=== PATIENT | male | born 1950 | race Caucasian/White ===

== ENCOUNTER 2016-04-15 09:44 | Emergency (ER) | payer MEDICAID ==
[2016-04-15 09:55] VITALS: TEMP 97.2
--- NOTE | 2016-04-15 11:45 | EDPHY ---
H & P Stated Complaint: rectal bleeding since this am. feeling dizzy. on coumadin.hemorroid Source: Patient Exam Limitations: No limitations - Personal History Current Tetanus/Diphtheria Vaccine: Unsure Current Tetanus Diphtheria and Acellular Pertussis (TDAP): Unsure - Medical/Surgical History Hx Asthma: No Hx Chronic Respiratory Disease: No Hx Diabetes: No Hx Cardiac Disease: Yes Hx Renal Disease: No Hx Cirrhosis: No Hx Alcoholism: No Hx HIV/AIDS: No Hx Splenectomy or Spleen Trauma: No Other PMH: AFIB, BACK PROBLEMS, hemorroid - Social History Smoking Status: Never smoked HPI/ROS: CHIEF COMPLAINT: Bleeding from hemorrhoids HISTORY OF PRESENT ILLNESS: patient has a history of previous DVT, currently on Coumadin daily. INR has been 2.5 per primary care physician. Notes some blood while wiping after bowel movement this morning. It is only on the toilet paper he did feel some mild dripping from this. No blood in the actual bowl of the toilet. No chest pain. No syncope. No weakness. No heavy bleeding. No bleeding from any other site. No constipation or diarrhea No other associated complaints or modifying factors. REVIEW OF SYSTEMS: Ten systems reviewed and are negative unless otherwise noted in the HPI EXAMINATION General Appearance: Alert, no distress Head: normocephalic, atraumatic Eyes: Pupils equal and round, no conjunctival pallor or injection ENT, Mouth: Mucous membranes moist. Uvula midline. Neck: Normal inspection, supple, non-tender Respiratory: Lungs are clear to auscultation Cardiovascular: Regular rate and rhythm . Pulses intact distally with good perfusion Gastrointestinal: obese. Abdomen is soft and nontender . Rectal exam reveals a small, bleeding hemorrhoid at 10 o'clock. No arterial flow. No abscess. Back: non-tender, no bony abnormalities Neurological: A&O, nonfocal Skin: Warm and dry, no rash Extremities: Nontender, no pedal edema Psychiatric: Mood and affect normal DIFFERENTIAL DIAGNOSES: Including but not limited to Hemorrhoids, bleeding hemorrhoids, Coumadin coagulopathy MDM: small, bleeding hemorrhoid on the 10 o'clock position. There is minimal blood flow. I have anesthetized and cauterized this with success. No bleeding after the procedure. He tolerated it well without complication. Will monitor him for rebleeding. 12:50 p.m. bleeding hemorrhoid on the patient with warfarin coagulopathy. I have anesthetized and cauterized the bleed. I have watched him for over an hour and he is no longer bleeding. He will be discharged home in stable condition with instructions for Sitz bath, ice, compression. He is to return to the ER for return of bleeding or pain. Otherwise follow up with primary care physician on Sunday for ongoing management of this. I do feel his INR may be too high for prevention, but he will discuss this with his primary care physician. PROCEDURE: Hemorrhoid cauterization Consent: Verbal Anesthesia: 1% lidocaine with epinephrine, 5 mL procedure: After good anesthesia, the area was cleaned with chlorhexidine. The bleeding hemorrhoid was cauterized as electrically with good hemostasis. This did take 2 attempts. Wound was dressed with gauze. Tolerated the procedure well without complication SUPERVISION: This patient was independently evaluated without the aide of supervising physician. (Jose Ramon Albert) Constitutional: Initial Vital Signs Temperature (C) 36.2 C 04/15/16 09:51 Heart Rate 87 04/15/16 09:51 Respiratory Rate 18 04/15/16 09:51 Blood Pressure 149/106 H 04/15/16 09:51 O2 Sat (%) 93 04/15/16 09:51 O2 Delivery Mode Room Air Allergies/Adverse Reactions: Penicillins Allergy (Unknown, Verified 04/15/16 10:02) pt does not want any Floxin abx Allergy (Uncoded 04/15/16 10:03) Home Medications: Medication Instructions Recorded Levothyroxine [Synthroid 125 mcg 125 mcg PO DAILY06 04/09/09 (*)] [place]-3 Fatty Acids [Fish Oil 1000 1,000 mg PO DAILY 07/16/15 mg (*)] Diazepam [Valium 5 MG (*)] 2.5 mg PO Q6 PRN #10 tab 07/17/15 Enoxaparin [Lovenox 120 MG (*)] 120 mg SC BID #10 syr 07/17/15 Hydrocodone/APAP 5/325 [[place] 1 - 2 tab PO Q4 PRN #30 tab 07/17/15 5/325 (*)] Warfarin Sodium 5 mg PO DAILY #30 tablet 07/17/15 Sennosides/Psyllium Husk [Senna 1 each PO DAILY #30 capsule 04/15/16 Prompt Capsule] Medical Decision Making Other Provider: The patient was evaluated and managed by the Physician Customer Data Technician/ Nurse Practitioner. My co-signature indicates that I have reviewed this chart and I agree with the findings and plan of care as documented. I am the secondary supervising physician. (Aydee Ying) Departure - Departure Disposition: Home, Routine, Self-Care Clinical Impression: Hemorrhoid, Warfarin-induced coagulopathy Condition: Good Instructions: Hemorrhoids (ED), Rectal Bleeding (ED), Warfarin (By mouth) Additional Instructions: Follow-up with primary care physician to discuss INR and Coumadin. The patient is likely a candidate to have a 1.5-2.0 INR. Defer to the primary care physician for management. Return to the ER for worsening bleeding or pain. Senna [id number] unless he develops diarrhea. Decreased activity today. Hold Coumadin today and tomorrow. Referrals: SHARMILA FINN MD [Primary Care Provider] - As per Instructions Prescriptions: Sennosides/Psyllium Husk [Senna Prompt Capsule] 1 each PO DAILY #30 capsule
[2016-04-15 12:43] VITALS: BP 114/65; PULSE 85; RESP 16; O2SAT 94
== END 2016-04-15 13:06 | disposition home or self-care (01) ==
DX: K64.9 Unspecified hemorrhoids (principal); D68.9 Coagulation defect, unspecified; Z79.01 Long term (current) use of anticoagulants

== ENCOUNTER → 2016-04-29 | Outpatient (CLI) | payer MEDICAID | LOC: FCPNEURO 21:30 | PROVIDERS: ATTEND Psychiatry & Neurology Sleep Medicine | DX: G47.33 Obstructive sleep apnea (adult) (pediatric) (principal); G47.61 Periodic limb movement disorder ==

== ENCOUNTER → 2016-05-24 | Outpatient (CLI) | payer MEDICAID | LOC: FCPNEURO 21:00 | PROVIDERS: ATTEND Psychiatry & Neurology Sleep Medicine | DX: G47.33 Obstructive sleep apnea (adult) (pediatric) (principal) ==

== ENCOUNTER 2017-03-15 11:59 | Emergency (ER) | payer MEDICAID, OTHER ==
--- NOTE | 2017-03-15 12:07 | EDPHY ---
H & P Time Seen by Provider: 03/15/17 12:03 HPI/ROS: CHIEF COMPLAINT: Cardiac alert HISTORY OF PRESENT ILLNESS: The patient is a 66-year-old man who was sent from [facility] as a cardiac alert. Of note the patient has a history of right bundle branch block and atrial fibrillation and is on Coumadin. He followed up at the clinic today to have his blood pressure checked. While he was there he told them that 2 weeks ago he had some brief left-sided chest pain that has since resolved. They noticed right branch block on his EKG and called a cardiac alert. The patient states that he has been asymptomatic for the last week or so. He denies chest pain or shortness of breath currently. He is laughing and states that he does not think he needs to be here. He has not been diaphoretic. No nausea vomiting. REVIEW OF SYSTEMS: Constitutional: denies: chills, fever, recent illness, recent injury EENTM: denies: blurred vision, double vision, nose congestion Respiratory: denies: cough, shortness of breath Cardiac: See HPI denies: chest pain, irregular heart rate, lightheadedness, palpitations Gastrointestinal/Abdominal: denies: abdominal pain, diarrhea, nausea, vomiting, blood streaked stools Genitourinary: denies: dysuria, frequency, hematuria, pain Musculoskeletal: denies: joint pain, muscle pain Skin: denies: lesions, rash, jaundice, bruising Neurological: denies: headache, numbness, paresthesia, tingling, dizziness, weakness Hematologic/Lymphatic: denies: blood clots, easy bleeding, easy bruising Immunologic/allergic: denies: HIV/AIDS, transplant EXAM: GENERAL: Well-appearing, obese and in no acute distress. HEAD: Atraumatic, normocephalic. EYES: Pupils equal round and reactive to light, extraocular movements intact, sclera anicteric, conjunctiva are normal. ENT: TMs normal, nares patent, oropharynx clear without exudates. Moist mucous membranes. NECK: Normal range of motion, supple without lymphadenopathy or JVD. LUNGS: Breath sounds clear to auscultation bilaterally and equal. No wheezes rales or rhonchi. HEART: Regular rate and rhythm without murmurs, rubs or gallops. ABDOMEN: Soft, nontender, normoactive bowel sounds. No guarding, no rebound. No masses appreciated. BACK: No CVA tenderness, no spinal tenderness, step-offs or deformities EXTREMITIES: Normal range of motion, no pitting or edema. No clubbing or cyanosis. NEUROLOGICAL: Cranial nerves II through XII grossly intact. Normal speech, normal gait. 5/5 strength, normal movement in all extremities, normal sensation PSYCH: Normal mood, normal affect. SKIN: Warm, dry, normal turgor, no visible rashes or lesions. Source: Patient, EMS Exam Limitations: No limitations - Medical/Surgical History Hx Asthma: No Hx Chronic Respiratory Disease: No Hx Diabetes: No Hx Cardiac Disease: Yes Hx Renal Disease: No Hx Cirrhosis: No Hx Alcoholism: No Hx HIV/AIDS: No Hx Splenectomy or Spleen Trauma: No Other PMH: AFIB, BACK PROBLEMS, hemorroid, obesity - Family History Significant Family History: No pertinent family hx - Social History Smoking Status: Never smoked Alcohol Use: Sober Drug Use: None Constitutional: Initial Vital Signs Temperature (C) 36.4 C 03/15/17 12:03 Heart Rate 85 03/15/17 12:03 Respiratory Rate 20 03/15/17 12:03 Blood Pressure 175/119 H 03/15/17 12:03 O2 Sat (%) 97 03/15/17 12:03 O2 Delivery Mode Room Air O2 (L/minute) 2 Allergies/Adverse Reactions: Penicillins Allergy (Unknown, Verified 03/15/17 12:03) ciprofloxacin [From Cipro] Allergy (Verified 03/15/17 12:03) Other-Enter Comments levofloxacin [From Levaquin] Allergy (Verified 03/15/17 12:03) pt does not want any Floxin abx Allergy (Uncoded 03/15/17 12:03) Home Medications: Medication Instructions Recorded Levothyroxine [Synthroid 125 mcg 125 mcg PO DAILY06 04/09/09 (*)] Warfarin Sodium 5 mg PO DAILY #30 tablet 07/17/15 Medical Decision Making - Diagnostics EKG Interpretation: An EKG obtained and was read and documented in trace view. Please see trace view for full reading and report. Atrial fibrillation, right bundle branch block, similar to outpatient Imaging Results: Imaging Impressions Chest X-Ray 03/15/17 12:04 Impression: Negative portable chest. ED Course/Re-evaluation: Dr. Darío Duggan was here on patient arrival and heard the paramedics gave report and reviewed the EKG agrees that this is not cardiac alert. I will obtain blood work and observe. 1:40 p.m. we discussed the lab work which is reassuring. The patient is eager to go home. He declines any further workup or testing at this time. He will follow up with his primary. We discussed indications for returning. Differential Diagnosis: Partial list of the Differential diagnosis considered include but were not limited to; elevated blood pressure, anxiety, and although unlikely based on the history and physical exam, I also considered acute coronary disease, PE, infection, dissection, aneurysm. I discussed these differential diagnoses and the plan with the patient as well as the usual and expected course. The patient understands that the diagnosis is provisional and that in medicine we are not always correct and that further workup is often warranted. Usual and customary warnings were given. All of the patient's questions were answered. The patient was instructed to return to the emergency department should the symptoms at all worsen or return, otherwise to followup with the physician as we discussed. - Data Points Laboratory Results: Laboratory Results 03/15/17 12:05 03/15/17 12:05 03/15/17 03/15/17 03/15/17 12:05 12:05 12:05 WBC 6.91 10^3/uL 10^3/uL (3.80-9.50) RBC 5.58 10^6/uL 10^6/uL (4.40-6.38) Hgb 18.8 g/dL H g/dL (13.7-17.5) Hct 52.0 % H % (40.0-51.0) MCV 93.2 fL fL (81.5-99.8) MCH 33.7 pg pg (27.9-34.1) MCHC 36.2 g/dL g/dL (32.4-36.7) RDW 13.7 % % (11.5-15.2) Plt Count 153 10^3/uL 10^3/uL (150-400) MPV 10.2 fL fL (8.7-11.7) Neut % (Auto) 58.1 % % (39.3-74.2) Lymph % (Auto) 26.6 % % (15.0-45.0) [place] % (Auto) 11.6 % % (4.5-13.0) Eos % (Auto) 2.2 % % (0.6-7.6) Baso % (Auto) 0.9 % % (0.3-1.7) Nucleat RBC Rel Count 0.0 % % (0.0-0.2) Absolute Neuts (auto) 4.02 10^3/uL 10^3/uL (1.70-6.50) Absolute Lymphs (auto) 1.84 10^3/uL 10^3/uL (1.00-3.00) Absolute Monos (auto) 0.80 10^3/uL 10^3/uL (0.30-0.80) Absolute Eos (auto) 0.15 10^3/uL 10^3/uL (0.03-0.40) Absolute Basos (auto) 0.06 10^3/uL 10^3/uL (0.02-0.10) Absolute Nucleated RBC 0.00 10^3/uL 10^3/uL (0-0.01) Immature Gran % 0.6 % % (0.0-1.1) Immature Gran # 0.04 10^3/uL 10^3/uL (0.00-0.10) PT 29.0 SEC H SEC (12.0-15.0) INR 2.75 H (0.83-1.16) APTT 41.1 SEC H SEC (23.0-38.0) Sodium 142 mEq/L mEq/L (134-144) Potassium 4.5 mEq/L mEq/L (3.5-5.2) Chloride 108 mEq/L mEq/L (97-110) Carbon Dioxide 23 mEq/l mEq/l (22-31) Anion Gap 11 mEq/L mEq/L (8-16) BUN 18 mg/dL mg/dL (7-23) Creatinine 0.9 mg/dL mg/dL (0.7-1.3) Estimated GFR > 60 Glucose 108 mg/dL H mg/dL (70-100) Calcium 9.7 mg/dL mg/dL (8.5-10.4) Troponin I < 0.012 ng/mL ng/mL (0.000-0.034) Departure - Departure Disposition: Home, Routine, Self-Care Clinical Impression: Hypertension Qualifiers: Hypertension type: essential hypertension Qualified Code(s): I10 - Essential ( primary) hypertension Condition: Fair Instructions: Hypertension (ED) Referrals: Patient,NotPresent [Unknown] - As per Instructions [facility],. [Clinic] - As per Instructions
[2017-03-15 12:14] LABS: PLATELET COUNT 153 10^3/uL (150-400)
--- NOTE | 2017-03-15 12:22 | CPEKG ---
Heart Rate: 106 RR Interval: 566 QRSD Interval: 142 QT Interval: 400 QTC Interval: 532 QRS [place]: 1 T Wave [place]: 20 EKG Severity - ABNORMAL ECG - EKG Impression: ATRIAL FIBRILLATION, V-RATE 82-135 EKG Impression: RIGHT BUNDLE BRANCH BLOCK EKG Impression: Unchanged from previous Electronically Signed By: Tonio Bolaños 15-Mar-2017 12:54:57
[2017-03-15 12:23] LABS: INR 2.75 (0.83-1.16)
[2017-03-15 14:03] VITALS: BP 119/75; PULSE 73; RESP 14; TEMP 97.9; O2SAT 96
== END 2017-03-15 14:02 | disposition home or self-care (01) ==
LOC: EDUNIT#
DX: I10 Essential (primary) hypertension (principal); Z79.01 Long term (current) use of anticoagulants

== ENCOUNTER 2017-08-08 05:50 | Inpatient (IN) | payer OTHER, MEDICARE ==
--- NOTE | 2017-07-30 10:12 | GHP ---
[f rep st] PREOP HISTORY AND PHYSICAL DATE OF ADMISSION: 08/08/2017 PROBLEM: Left hip arthritis. HISTORY OF PRESENT ILLNESS: The patient is a 66-year-old man admitted for a left total hip arthropla sty. His left hip has been painful for about 2 years. He had a cortisone injection 4 or 5 months ag o which was temporarily helpful. He has night pain. He does not take any medications. He has troub le putting on his shoes and socks on the left foot. Walking aggravates his pain. He is admitted for a left total hip arthroplasty. PAST MEDICAL HISTORY: In June of 2015, he underwent a spontaneous pulmonary embolism. He is curren tlcrow on Coumadin. His Coumadin is managed by the [facility]. He is also hypothyroid. He has atrial fibrillation and right bundle branch block. No history of stents, hepatitis, sleep apnea or b leeding problems. CURRENT MEDICATIONS: Coumadin. The dose varies between 2.5 and 5 mg per day. He has his INR checke d once a week. He is also on Synthroid 125 mcg per day. DRUG ALLERGIES: He states that he is allergic to penicillin. He cannot remember the reaction. It w as a long time ago. METAL ALLERGIES: None. LATEX ALLERGY: None. SOCIAL HISTORY: The patient is single. His son will be staying with him for 4 days. He does not sm lizette cigarettes or drink alcohol. He is retired. FAMILY HISTORY: Family history is positive for arthritis and heart disease. PHYSICAL EXAMINATION: VITAL SIGNS: Height 6 feet, weight 267 pounds. BMI 36.2. EYES: Conjunctiva e and sclerae are clear. Pupils are round and reactive. MOUTH: Good oral hygiene. No loose teeth. CHEST: Clear. HEART: Regular rhythm. No murmurs. EXTREMITIES: Pertinent findings are limited to his left hip. He has full hip extension and 70 degrees of flexion. As he flexes the hip, he deve lops a 30 degree external rotation contracture and has no further internal or external rotation. Abd uction 20 degrees. Most of his excess weight is in the abdominal and truncal area. IMPRESSION ON ADMISSION: 1. Left hip advanced degenerative arthritis. He is prepared for a left total hip arthroplasty. 2. History of pulmonary embolism. He is on Coumadin. 3. Treatment for hypothyroidism. PLAN: He will undergo a left total hip arthroplasty. The surgery has been described to him, panda dukes the risks, complications, expectations, and recovery time. I have discussed with him the risk of dislocation, leg length inequality, infection, and sciatic nerve injury. He understands that he pote ntially could require revision surgery in the future. He is at a higher risk for thromboembolic disease. He will be on Lovenox for bridge therapy for 4 da ys prior to surgery. All his questions have been answered, and he consents to surgery. /[id number]/MODL
[~2017-08-08 05:50] MED LIST: VANCOMYCIN PHARMACY TO DOSE MISC ONE
[2017-08-08] MEDS ORDERED: ROPIVACAINE 0.2% 80 MG, EPINEPHrine 0.2 MG, KETOROLAC TROMETHAMINE 30 MG in SYRINGE 0 ML IU ONE (06:00)
[2017-08-08] MEDS ORDERED: VANCOMYCIN 1.75 GM in D5W 500 ML IV ONE ×2 (06:00→19:00)
[2017-08-08] MEDS ORDERED: POVIDONE-IODINE 20 ML in SODIUM CL IRRIG SOLUTION 500 ML IRR ONE (06:00)
[2017-08-08] MEDS ORDERED: TRANEXAMIC ACID 2,000 MG in NS 100 ML IV ONE (06:00)
[2017-08-08] MEDS ORDERED: DEXAMETHASONE 4 MG/ML VIAL IVP ONE (06:14)
[2017-08-08] MEDS ORDERED: FAMOTIDINE 20 MG TAB PO ONE (06:14)
[2017-08-08] MEDS ORDERED: GABAPENTIN 300 MG CAP PO ONE (06:14)
[2017-08-08] MEDS ORDERED: LR 1,000 ML IV ONE (06:14)
[2017-08-08] MEDS ORDERED: ONDANSETRON 4 MG/2 ML VIAL IVP ONE (06:14)
[2017-08-08] MEDS ORDERED: ACETAMINOPHEN 325 MG TAB PO ONE (06:14)
[2017-08-08] MEDS ORDERED: LIDOCAINE 1% 2 ML INJ ID PRN (06:14)
[2017-08-08] MEDS ORDERED: ceFAZolin 1 GM/5 ML SYR ONE (06:32)
--- NOTE | 2017-08-08 07:02 | PDHPUP ---
History & Physical Update H&P update statement: This history and physical update is based on an assessment of the patient which was completed after admission or registration (within 24 hours), but prior to the surgery/procedure. H&P update: H&P reviewed & patient examined
--- NOTE | 2017-08-08 07:05 | PDANEPAE ---
ANE History of Present Illness left hip OA ANE Past Medical History - Cardiovascular History Hx Hypertension: No Hx Arrhythmias: Yes Hx Chest Pain: No Hx Coronary Artery / Peripheral Vascular Disease: No Hx CHF / Valvular Disease: No Hx Palpitations: No Cardiovascular History Comment: A fib R BBB-on Coumadin. Blood clot leg/lung - 2015. - Pulmonary History Hx COPD: No Hx Asthma/Reactive Airway Disease: No Hx Recent Upper Respiratory Infection: No Hx Oxygen in Use at Home: No Hx Sleep Apnea: Yes Sleep Apnea Screening Result - Last Documented: Positive Pulmonary History Comment: CARLOS use CPAP with nose "hose". seasonal allergies - Neurologic History Hx Cerebrovascular Accident: No Hx Seizures: No Hx Dementia: No - Endocrine History Hx Diabetes: No Hypothyroid: Yes Hyperthyroid: No Obesity: yes, severe Endocrine History Comment: hypothyroid-Castro's - Renal History Hx Renal Disorders: No Renal History Comment: kidney stones - Liver History Hx Hepatic Disorders: No - Neurological & Psychiatric Hx Hx Neurological and Psychiatric Disorders: Yes Neurological / Psychiatric History Comment: aly. bipolar 11 - Cancer History Hx Cancer: No - Congenital Disorder History Hx Congenital Disorders: No - GI History Hx Gastrointestinal Disorders: No Gastrointestinal History Comment: screening colonoscopy 10-16-16 - Other Health History Other Health History: OA L hip. Gets "cut" very easily -wound takes longer to heal. - Chronic Pain History Chronic Pain: No (lower back pain, L5/s1 fused) - Surgical History Prior Surgeries: Tonsillectomy child. right thigh, calf varicos veins ANE Review of Systems Review of systems is: negative Review of Systems: - Exercise capacity Exercise capacity: limited by disability METS (RN): 3 METS ANE Patient History - Allergies Allergies/Adverse Reactions: ciprofloxacin [From Cipro] Allergy (Unknown, Verified 07/23/17 14:58) Other-Enter Comments levofloxacin [From Levaquin] Allergy (Unknown, Verified 07/23/17 14:58) Penicillins Allergy (Unknown, Verified 07/23/17 14:58) pt does not want any Floxin abx Allergy (Uncoded 07/23/17 14:58) - Home Medications Home Medications: Levothyroxine [Synthroid 125 mcg (*)] 125 mcg PO DAILY06 04/09/09 [Last Taken 20:30] Warfarin Sodium [Coumadin 5MG (*)] 2.5 mg PO MOWEFR@1600 07/19/17 [Last Taken ] Warfarin Sodium [Coumadin 5MG (*)] 5 mg PO SUTUTHSA@1600 07/19/17 [Last Taken ] Lovenox 08/08/17 [Last Taken 08/06/17] - NPO status NPO Status: no food or drink >8 hours NPO Since - Liquids (Date): 08/08/17 NPO Since - Liquids (Time): 02:00 NPO Since - Solids (Date): 08/07/17 NPO Since - Solids (Time): 19:00 - Anes Hx Anes Hx: no prior problems - Smoking Hx Smoking Status: Never smoked - Alcohol Use Alcohol Use: None - Family Anes Hx Family Anes Hx: none Family Hx Anesthesia Complications: none ANE Labs/Vital Signs - Vital Signs Vital Signs: reviewed preoperatively; see RN documention for details Height: 182.88 cm Weight: 124.738 kg ANE Physical Exam - Airway Neck exam: FROM Mallampati Score: Class 2 - Pulmonary Pulmonary: no respiratory distress - Cardiovascular Cardiovascular: regular rate and rhythym - ASA Status ASA Status: III ANE Anesthesia Plan Anesthesia Plan: spinal (pending PT/INR)
[2017-08-08] MEDS ORDERED: MIDAZOLAM 2 MG/2 ML VIAL ONE (07:07)
[2017-08-08] MEDS ORDERED: MIDAZOLAM 2 MG/2 ML VIAL IVP ONE (07:11)
[2017-08-08] MEDS ORDERED: PROPOFOL/EMULSION 500 MG/50 ML BOTTLE IV ONE ×2 (07:17→08:21)
[2017-08-08] MEDS ORDERED: LIDOCAINE 2% 5 ML SDV ONE (07:17)
[2017-08-08 07:18] LABS: INR 1.16 (0.83-1.16)
--- NOTE | 2017-08-08 09:00 | POSTOPPROG ---
Post Op Note Date of Operation: 08/08/17 Surgeon: Car Hargrove Tutoring Assistant: Clover Anesthesiologist: Dr. Martínez Harrison Anesthesia: IV Sedation, Spinal Post-op Diagnosis: Left hip severe degenerative arthritis Procedure: Left total hip arthroplasty Inf/Abcess present in the surg proc area at time of surgery?: No EBL: 100-500
[2017-08-08] MEDS ORDERED: PROMETHAZINE HCL 25 MG SUPPR PR PRN (09:14)
[2017-08-08] MEDS ORDERED: POLYETHYLENE GLYCOL 3350 17 GM PKT PO PRN (09:14)
[2017-08-08] MEDS ORDERED: MAGNESIUM HYDROXIDE 30 ML UDCUP PO PRN (09:14)
[2017-08-08] MEDS ORDERED: ONDANSETRON DISINTEGRATING 4 MG TAB PO PRN (09:14)
[2017-08-08] MEDS ORDERED: diphenhydrAMINE 25 MG CAP PO PRN (09:14)
[2017-08-08] MEDS ORDERED: METOCLOPRAMIDE 10 MG/2 ML VIAL IVP PRN (09:14)
[2017-08-08] MEDS ORDERED: TEMAZEPAM 15 MG CAP PO PRN (09:14)
[2017-08-08] MEDS ORDERED: BISACODYL 10 MG SUPP PR PRN (09:14)
[2017-08-08] MEDS ORDERED: NS 500 ML IV PRN (09:14)
[2017-08-08] MEDS ORDERED: DIPHENOXYLATE/ATROPINE LOMOTIL 1 TAB PO PRN (09:14)
[2017-08-08] MEDS ORDERED: LACTULOSE 20 GM/30 ML UDCUP PO PRN (09:14)
[2017-08-08] MEDS ORDERED: PROMETHAZINE HCL 25 MG/ML INJ IVP PRN (09:14)
[2017-08-08] MEDS ORDERED: ONDANSETRON 4 MG/2 ML VIAL IVP PRN ×2 (09:14→09:15)
[2017-08-08] MEDS ORDERED: ALBUTEROL 3 ML DEYVIAL IH PRN (09:15)
[2017-08-08] MEDS ORDERED: oxyCODONE IR 5 MG TAB PO PRN (09:15)
[2017-08-08] MEDS ORDERED: fentaNYL 100 MCG/2 ML INJ IVP PRN (09:15)
[2017-08-08] MEDS ORDERED: MEPERIDINE 25 MG/0.5 ML AMP IVP PRN (09:15)
[2017-08-08] MEDS ORDERED: NALOXONE HCL 0.4 MG/ML INJ IVP PRN (09:15)
[2017-08-08] MEDS ORDERED: HYDROmorphONE/DILAUDID 2 MG/ML INJ IVP PRN (09:15)
[2017-08-08] MEDS ORDERED: PHENYLEPHRINE HCL 100 MCG/ML SYR IVP PRN (09:15)
--- NOTE | 2017-08-08 09:17 | POSTANESTH ---
Post Anesthetic Evaluation Cardiovascular Status: Normal, Stable Respiratory Status: Normal, Stable Level of Consciousness/Mental Status: Moderately Sleepy Pain Control: Adequate, Prn Tx Ordered Nausea/Vomiting Control: Adequate, Prn Tx Ordered Complications Possibly Related to Anesthesia: None Noted
[2017-08-08] MEDS ORDERED: LR 1,000 ML IV SCH (09:30)
--- NOTE | 2017-08-08 10:13 | GOP ---
[f rep st] OPERATIVE REPORT DATE OF OPERATION: 08/08/2017 SURGEON: Car Hargrove MD MARKET RESEARCHER: Jad Schultz and Ronnie Wynn. ANESTHESIA: Combination of Marcaine, spinal, and IV sedation. ANESTHESIOLOGIST: Martínez Harrison MD. PREOPERATIVE DIAGNOSIS: Left hip degenerative arthritis. POSTOPERATIVE DIAGNOSIS: Left hip degenerative arthritis. PROCEDURE PERFORMED: 08/08/2017, a left total hip arthroplasty, ceramic femoral head on highly cross -linked polyethylene cup liner. FINDINGS: DESCRIPTION OF PROCEDURE: The patient received preoperative IV vancomycin within 60 minutes of surge ry. He also received IV tranexamic acid at a dose of 2000 mg. He was placed on the operating room t able and given spinal anesthesia with Marcaine by Dr. Harrison. He was then placed supine and given IV sedation. A Powell catheter was not used. He wore a PINA stocking and SCD on the nonoperative leg. He was rolled to the right lateral decubitus position. The position was secured with the pegboard table attachment. An axillary roll was used and all pressure points were carefully padded. I was ca reful to lock his pelvis in a vertical position. Height 6 feet. Weight 267 pounds. BMI 36.2. He w as a large man with a lot of weight through the abdomen and truncal area. That made positioning diff icult. His perineum was isolated with plastic adhesive drapes. The left hip and left lower extremit y were prepped with ChloraPrep. They were draped free using sterile sheets, stockinette, and Ioban p lastic drape. The [employer] time-out was performed to verify the correct surgical side and site and the correct patient identity. The [place] time-out was also performed. I made a 5-6 inch straight oblique posterolateral hip skin incision. The subcutaneous tissues were s harply divided, and hemostasis was obtained using electrocautery. His fascia citlalli was identified and split along the axis of its fibers. I curved posteriorly and proximally, and split the fascia of gl uteus cinthia and bluntly split the muscle fibers in line with their orientation. The Charnley self- retaining retractor was inserted. His sciatic nerve was located, partially exposed, and protected th roughout the procedure. The external rotators and the posterior hip capsule were divided as separate layers at the base of the femoral neck, tagged, and reflected posteriorly. A smooth 8-inch Arnold n pin was inserted vertically into the ilium, superior to the acetabulum. An 8-inch drill bit was in serted vertically into the greater trochanter and parallel to the first pin. The distance between th e 2 was measured for leg length reference. His femoral head was dislocated posteriorly. Severe dege nerative changes were present on the femoral head. The femoral neck was osteotomized at the appropri ate level and inclination. I was careful to preserve all the posterior capsule and most of the anterior capsule. The remnant of his damaged labrum was excised. I prepared the femur first. This allowed me to real property appraiser the amount of natural femoral neck anteversion. He had more than average anteversion for a male. He had approximately 15 degrees. The canal was o pened laterally with a box chisel. I used the starter reamer on power and then hand broached sequent ially up to a size 6. I used a size 6 broach with the standard offset as a trial stem. I was carefu l to lateralize adequately. Appropriate retractors were inserted to expose the acetabulum. The acetabulum was reamed sequentiall y up to 55 mm. I selected a 56 mm Soraida Tritanium Trident 1 solid backed hemispherical shell. Thi s was tapped securely into place in the proper degree of inclination anteversion. I used the transve rse acetabular ligament and other acetabular bony landmarks to help me properly orient the cup. I in serted a screw-in metal dome hole plug. I performed a series of trial reductions to determine length and stability. I took an intraoperative cross-table AP pelvis x-ray. This confirmed proper sizing and position of the femoral component. I decided that the +5 mm neck length with a 36 mm head gave me the proper combination of appropriate l ength and good stability. Based on the appearance of the x-ray I went back and slightly adjusted the position of the cup to make it a little more horizontal. The 0 degree Hillsdale X3 highly cross-linked polyethylene liner was inserted and tapped securely into place. I selected the [place]dale Accolade II stem in a size 6 with standard offset. This was inserted press-fit and was very tight. I did 1 final trial reduction and confirmed that the +5 mm neck length with a 36 mm head was the proper combination. He was a few mm short preoperatively, and I was inten tionally lengthening him a small amount. I selected the Soraida Biolox Delta ceramic head with an ou tside diameter of 36 mm and a neck length of +5 mm. This was tapped securely onto the clean trunnion . The acetabulum was irrigated, cleaned, and the hip was reduced 1 final time. He had excellent ant erior and posterior stability and appropriate lengthening. 40 mL of the joint anesthetic cocktail were injected into the capsule, the deep musculature, and the subcutaneous tissues around the skin edges. The joint was thoroughly irrigated 1 final time with a d ilute Betadine solution. His sciatic nerve was reinspected and looked unharmed. The external rotato rs and the posterior hip capsule were repaired in separate layers with #2 FiberWire sutures through d rill holes in the greater trochanter. This provided a very strong posterior capsular and external ro tator repair. The fascia citlalli was closed first with two [id number] #2 FiberWire sutures followe d by a running #2 barbed Ethicon Stratafix PDO suture. The subcutaneous tissues were closed with a r unning 0 barbed Ethicon Stratafix Monoderm suture. The skin was closed with a running 3-0 barbed Eth icon Stratafix Monoderm subcuticular suture. The skin edges were reapproximated and sealed with Derm abond glue. The wound was covered with a large Mepilex waterproof sterile dressing. The Mepilex sac ral dressing was also applied. A long-leg PINA stocking and SCD were applied to his left lower extremity. He wore a stocking and SCD on the opposite leg during the procedure. He was awakened from anesthesia and rolled to the supine position on his [facility]. He was taken to PACU in satisfactory condition. There were no kristine gnized intraoperative complications. The estimated blood loss was about 400 mL. The sponge and needle count were correct on 2 occasions. I used a Soraida Tritanium Trident 1 hemispherical solid back shell with an outside diameter of 56 mm . The liner was a Hillsdale X3 0-degree highly cross-linked liner with an inside diameter of 36 mm. T he femoral component was a standard offset Accolade II stem in a size 6 and press-fit. The femoral h ead was a [place]dale Biolox Delta ceramic head with a +5 mm neck length and a 36 mm outside diameter. Jad Schultz and Ronnie Wynn acted as surgical assistants. Their assistance was a medical necess ity for safe completion of the procedure. /[id number]/MODL
--- NOTE | 2017-08-08 10:42 | PDMN ---
Medical Necessity Medical necessity: [facility] IP only surgery; cpt 13472 L STEVIE
[2017-08-08] MEDS: KETOROLAC 15 MG/1 ML SDV IVP SCH ×2 (11:26→18:13)
[2017-08-08] MEDS: ACETAMINOPHEN 325 MG TAB PO SCH ×2 (11:31→18:12)
[2017-08-08] MEDS: oxyCODONE IR 5 MG TAB PO PRN ×2 (14:33→21:00)
[2017-08-08] MEDS ORDERED: WARFARIN SODIUM 5 MG TAB PO ONE (16:00)
[2017-08-08] MEDS: traMADol 50 MG TAB PO PRN (18:19)
[2017-08-08] MEDS: SENNOSIDES/DOCUSATE SODIUM TAB PO SCH (20:59)
[2017-08-08] MEDS: CYCLOBENZAPRINE 10 MG TAB PO PRN (20:59)
[2017-08-08] MEDS: FAMOTIDINE 20 MG TAB PO SCH (20:59)
[2017-08-08] MEDS ORDERED: LEVOTHYROXINE 125 MCG TAB PO SCH (21:00)
[2017-08-09] MEDS: KETOROLAC 15 MG/1 ML SDV IVP SCH ×2 (00:19→05:46)
[2017-08-09] MEDS: ACETAMINOPHEN 325 MG TAB PO SCH ×3 (00:19→13:00)
[2017-08-09] MEDS: traMADol 50 MG TAB PO PRN (00:32)
[2017-08-09 05:10] LABS: INR 1.06 (0.83-1.16)
[2017-08-09] MEDS ORDERED: LEVOTHYROXINE 125 MCG TAB PO SCH (06:00)
[2017-08-09] MEDS: CYCLOBENZAPRINE 10 MG TAB PO PRN (06:39)
[2017-08-09] MEDS: oxyCODONE IR 5 MG TAB PO PRN ×2 (06:40→10:11)
--- NOTE | 2017-08-09 07:23 | SOAPPROG ---
SOAP Progress Note Assessment/Plan: Assessment: Afebrile. Awake and alert. Not moving much yet. Dsg is dry. H/H is good. Sciatic nerve intact. Needed cath last night, but voiding spont today. Plan:PT today. DC later today. Continue lovenox and coumadin. Check INR at [facility] next 08/09/17 07:17 Objective: Vital Signs Temp Pulse Resp BP Pulse Ox 36.6 C 80 16 97/78 L 93 08/09/17 04:00 08/09/17 04:00 08/09/17 04:00 08/09/17 04:00 08/09/17 04:00 Laboratory Results 08/09/17 04:25 08/08/17 11:10 08/08/17 08/09/17 08/10/17 05:59 05:59 05:59 Intake Total 1460 Output Total 1950 Balance -490 PT 14.0 SEC (12.0-15.0) 08/09/17 04:25 INR 1.06 (0.83-1.16) 08/09/17 04:25 ICD10 Worksheet Patient Problems: Problems Problem Status Onset Osteoarthritis of left hip Acute Atrial fibrillation Acute Pulmonary embolism Acute
--- NOTE | 2017-08-09 07:40 | PDIAF ---
- Diagnosis Diagnosis: left hip OA Code Status: Full Code - Medication Management Discharge Medications: Medications to Continue on Transfer Levothyroxine [Synthroid 125 mcg (*)] 125 mcg PO DAILY06 04/09/09 [Last Taken 20:30] Warfarin Sodium [Coumadin 5MG (*)] 2.5 mg PO MOWEFR@1600 07/19/17 [Last Taken ] Warfarin Sodium [Coumadin 5MG (*)] 5 mg PO SUTUTHSA@1600 07/19/17 [Last Taken ] Acetaminophen [Tylenol 325mg (*)] 650 mg PO Q6HRS tab 08/09/17 [Last Taken Unknown] Cyclobenzaprine [Flexeril 10 MG (*)] 10 mg PO Q8HRS PRN #21 tab 08/09/17 [Last Taken Unknown] Enoxaparin [Lovenox 40 MG (*)] 40 mg SC DAILY syr 08/09/17 [Last Taken Unknown] Ondansetron Odt [Zofran Odt 4 mg (*)] 4 mg PO Q4HRS PRN tab 08/09/17 [Last Taken Unknown] Sennosides/Docusate Sodium [Senokot-S] 1 - 2 tab PO BID tab 08/09/17 [Last Taken Unknown] oxyCODONE IR [Oxycodone Ir (*)] 5 - 10 mg PO Q3HRS PRN tab 08/09/17 [Last Taken Unknown] traMADol [Ultram 50 mg (*)] 50 mg PO Q6HRS PRN tab 08/09/17 [Last Taken Unknown ] Discharge Medications: Refer to the Discharge Home Medication list for PRN reason. PICC Care - Routine: N/A - Orders Services needed: Home Care, Physical Therapy Home Care Face to Face: I certify that this patient was under my care and that I had the required [id number] encounter meeting the encounter requirements on the discharge day. My findings support the fact that the patient is homebound as defined in Home Care Face to Face Continued: CMS Chapter 7 Medicare Benefits Manual 30.1.1 , The condition of the patient is such that there exists a normal inability to leave home and consequently, leaving home would require a considerable and taxing effort. Diet Recommendation: no restrictions on diet Diet Texture: Regular Texture Diet Powell: Not applicable Festus Stockings Discontinue Date: 1 week Wound Care Instructions: keep clean and dry. You may shower. Activity/Weight Bearing Restrictions: as tolerated. - Follow Up Care Current Providers and Referrals: NONE *PRIMARY CARE P,. [Primary Care Provider] - Car Hargrove MD [Medical Doctor] - follow up as scheduled (3 weeks)
--- NOTE | 2017-08-09 07:57 | GDS ---
[f rep st] DISCHARGE SUMMARY ADMISSION DIAGNOSIS: Left hip severe degenerative arthritis. DISCHARGE DIAGNOSIS: Left hip severe degenerative arthritis. PROCEDURE PERFORMED: 08/08/2017, left total hip arthroplasty, ceramic femoral head on highly cross-linked polyethylene cup liner. POSTOPERATIVE COMPLICATIONS: None. CONDITION ON DISCHARGE: Improved. DESCRIPTION OF HOSPITAL COURSE: The patient was admitted to the hospital on the morning of surgery. His admission hemoglobin and hematocrit were 18.5 and 53.4. The same day, under a combination of Marcaine, spinal, and IV sedation, he underwent a left total hip arthroplasty. Postoperatively, he was treated with multimodal DVT prophylaxis. He had a previous history of pulmonary embolism. He was started on Lovenox and restarted on his Coumadin. On the first postoperative day his hemoglobin and hematocrit were 15.6 and 44.9. He required straight urinary catheterization 1 time, postoperatively but was able to void spontaneously after that. He was seen by Physical Therapy and made satisfactory progress with ambulation and stairs. By the time of discharge, he was afebrile and was independent walking with a walker. DISPOSITION: The patient is discharged to his home. He will have home physical therapy. He will continue Lovenox and his regular dose of Coumadin until next Sunday when [facility] He may progress to full weightbearing on the left. Continue PINA stockings for 1 week. Use an abduction pillow in bed for 3 weeks. He has prescriptions for oxycodone, tramadol and Celebrex for pain control. If there are any problems, he is to call me at the office. I will see him back in the office in 3 weeks. If any problems he is call me at the office. Copy requested to: Alvaro /[id number]/MODL MTDD
[2017-08-09] MEDS ORDERED: ENOXAPARIN 40 MG/0.4 ML SYR SC SCH (09:00)
[2017-08-09] MEDS: SENNOSIDES/DOCUSATE SODIUM TAB PO SCH (09:05)
[2017-08-09] MEDS: FAMOTIDINE 20 MG TAB PO SCH (09:06)
[2017-08-09 11:09] VITALS: BP 98/69
--- NOTE | 2017-08-09 15:21 | ASMTCMCOM ---
CM Note CM Note Notes: Pt s/p OA of hip. PT/OT rec [facility], pt agreeable and chooses [facility]. Orders sent in [employer]. Pt son to transport home. Date Signed: 08/09/2017 03:20 PM Electronically Signed By:LYN Peralta
[2017-08-09] MEDS ORDERED: WARFARIN SODIUM 5 MG TAB PO ONE (16:00)
--- NOTE | 2017-08-09 16:21 | ASDISCHSUM ---
Discharge Information Plan Status:Home with Home Health Medically Cleared to Leave: Discharge Date:08/09/2017 03:40 PM CM D/C Disposition:Home Health Service ADT D/C Disposition:Home Health Service Projected Discharge Date:08/09/2017 11:00 AM Transportation at D/C:Family Discharge Delay Reason: Follow-Up Date:08/09/2017 11:00 AM Discharge Slot: Final Diagnosis: Placement Information Referral Type:*Home Health Care Services Referral ID:[id number] Provider Name:[facility] [place] Address 1:[address] [place] [address] Address 2: City:[place] Selection Factors: State:[place] Patient Contact Information Contact Name:NASIM Relationship:Son Address: Work Phone: City: [facility] Phone: [facility] Code: Email: Financial Information Financial Class:Medicare Primary Plan Desc:MEDICARE INPATIENT Primary Plan Number:[id number] Secondary Plan Desc:[employer]/MDR SUPPLEMENT Secondary Plan Number:[id number] Assessment Information [facility] CM Progress Note CM Note CM Note Notes: Pt s/p OA of hip. PT/OT rec [facility], pt agreeable and chooses [facility]. [facility] [place]. Pt son to transport home. Date Signed: 08/09/2017 03:20 PM Electronically Signed By:LYN Peralta Intervention Information
== END 2017-08-09 15:40 | disposition home health service (06) | DRG 470 ==
LOC: F3N 05:50
PROVIDERS: ADMIT Orthopaedic Surgery; ATTEND Orthopaedic Surgery
PROC: 0SRB04Z Replacement of Left Hip Joint with Ceramic on Polyethylene Synthetic Substitute, Open Approach (ICD-10-PCS; principal; 2017-08-08 07:15)
DX: M16.12 Unilateral primary osteoarthritis, left hip (principal); E03.9 Hypothyroidism, unspecified; I48.91 Unspecified atrial fibrillation; I45.10 Unspecified right bundle-branch block; G47.33 Obstructive sleep apnea (adult) (pediatric); Z86.711 Personal history of pulmonary embolism; Z79.01 Long term (current) use of anticoagulants; Z88.0 Allergy status to penicillin
CPT/HCPCS: 97116-GP; 97161-GP; 97166-GO; 97530-GP; 97535-GO; G8978-GP-CK; G8979-GP-CI; G8987-GO-CI; G8988-GO-CI; G8989-GO-CI; J0171; J1100; J1650; J1885; J2250; J2370; J2405; J2704; J2795; J3370